=== PATIENT | male | born 1975 | race Caucasian/White ===

== ENCOUNTER 2016-08-09 17:56 | Emergency (ER) | payer BC ==
--- NOTE | 2016-08-09 19:17 | PHYS DOC ---
Past Medical History Past Medical History: Diabetes-Type II Additional Past Medical Histor: gout Past Surgical History: No Surgical History Alcohol Use: Occasionally Drug Use: None Adult General Chief Complaint Chief Complaint: MULTIPLE COMPLAINTS HPI HPI Patient is a 41 year old male who presents with atraumatic right knee pain for 2 weeks. He reports swelling and redness of the knee as well. He does not recall any injury. The pain gets worse throughout the day. The swelling is better in the morning and also increases throughout the day. He has had night sweats without fevers. He has a history of gout. He has been taking indomethacin without improvement in his symptoms. He states usually the indomethacin resolves his gout flares. He has been applying ice, heat, and massaging without relief. The pain is worse when walking or with bending the knee. His PCP is Dr. Soheila Umaña. Review of Systems Review of Systems Constitutional: Denies fever or chills. Reports night sweats. Musculoskeletal: Reports right knee pain and swelling. Integument: Denies rash or skin lesions. Reports right knee redness, swelling, and warmth. Neurologic: Denies focal weakness or sensory changes. [] Current Medications Current Medications Current Medications Medications (Trade) Dose Ordered Sig/Wero Start Time Stop Time Status Last Admin Dose Admin Morphine Sulfate 4 mg PRN Q15MIN PRN 08/09/16 19:30 08/09/16 21:59 DC 08/09/16 19:39 4 MG Allergies Allergies Allergies Coded Allergies Type Severity Reaction Last Updated Verified No Known Drug Allergies 08/09/16 No Physical Exam Physical Exam Constitutional: Well developed, well nourished, no acute distress, non-toxic appearance. [] HENT: Normocephalic, atraumatic, oropharynx moist. [] Eyes: PERRLA, EOMI, conjunctiva normal, no discharge. [] Skin: Warm, dry, no rash. There is diffuse erythema of the right knee and surrounding tissue with warmth. There is no induration. There is no evidence of trauma. Extremities: Diffuse right knee tenderness, full extension with decreased flexion due to pain and swelling, mild edema. Negative ballottement. 2+ DP and PT pulses. Less than 2 second capillary refill distally. Light touch sensation intact distally. There is minimal edema of the right lower leg and ankle without pitting or erythema. Full ROM of the right hip, ankle, and foot. Neurologic: Alert and oriented X 3, normal motor function, normal sensory function, no focal deficits noted. [] Psychologic: Affect normal, judgement normal, mood normal. [] Current Patient Data Vital Signs Vital Signs Date Time Temp Pulse Resp B/P Pulse Ox O2 Delivery O2 Flow Rate FiO2 08/09/16 21:55 73 18 129/77 96 08/09/16 20:09 Room Air Lab Values Laboratory Tests Test 08/09/16 19:21 White Blood Count 7.2x10^3/uL (4.0-11.0) Red Blood Count 5.05x10^6/uL (4.30-5.70) Hemoglobin 14.3g/dL (13.0-17.5) Hematocrit 42.1% (39.0-53.0) Mean Corpuscular Volume 83fL (79-100) Mean Corpuscular Hemoglobin 28pg (25-35) Mean Corpuscular Hemoglobin Concent 34g/dL (31-37) Red Cell Distribution Width 12.7% (11.5-14.5) Platelet Count 290x10^3/uL (140-400) Neutrophils (%) (Auto) 74% (31-73) H Lymphocytes (%) (Auto) 15% (24-48) L Monocytes (%) (Auto) 9% (0-9) Eosinophils (%) (Auto) 1% (0-3) Basophils (%) (Auto) 1% (0-3) Neutrophils # (Auto) 5.3x10^3uL (1.8-7.7) Lymphocytes # (Auto) 1.1x10^3/uL (1.0-4.8) Monocytes # (Auto) 0.6x10^3/uL (0.0-1.1) Eosinophils # (Auto) 0.1x10^3/uL (0.0-0.7) Basophils # (Auto) 0.0x10^3/uL (0.0-0.2) Erythrocyte Sedimentation Rate 47 (0-15) H Uric Acid 8.0mg/dL (3.5-7.2) H Laboratory Tests 08/09/16 19:21 EKG EKG [] Radiology/Procedures Radiology/Procedures Right knee x-ray does not reveal any acute fractures or dislocations. REASON: right knee pain, red, swelling PROCEDURE: VENOUS LOWER EXTREMITY RIGHT PROCEDURE Right lower extremity venous Doppler dated 08/09/2016. HISTORY Posterior knee pain. No known injury for 2 weeks. TECHNIQUE Grayscale, color flow and spectral waveform analysis performed. COMPARISON None. FINDINGS Normal compressibility, phasicity and augmentation of flow throughout. No filling defects are seen. There is a complex fluid collection at the posterior knee that measures up to 8.8 centimeters craniocaudal dimension. IMPRESSION - No evidence of right lower extremity deep vein thrombosis. - Complex fluid collection at the posterior knee is indeterminate but may represent a large complex popliteal cyst. Recommend physical exam correlation. Course & Med Decision Making Course & Med Decision Making Pertinent Labs and Imaging studies reviewed. (See chart for details) Patient is a 41-year-old male with history of gout who presents with atraumatic right knee pain, redness, and swelling for 2 weeks. On exam, the knee is erythematous, warm, and mildly swollen with decreased range of motion due to pain. He is neurovascularly intact. X-ray does not show any acute fractures or dislocations. Ultrasound shows a Morillo's cyst in the right knee without DVT. Uric acid and ESR elevated without leukocytosis. Patient was seen and examined with Dr. Odell. He does not appear to have a septic joint. The pain, redness, and swelling are likely due to fluid leakage from the Morillo's cyst. Patient is discharged home with prescription for pain medication. He is instructed to follow-up with orthopedics. Return if swelling, redness, or warmth increase, as the knee may need to be tapped. The patient verbalizes understanding and agrees with plan. Dragon Disclaimer Dragon Disclaimer This electronic medical record was generated, in whole or in part, using a voice recognition dictation system. Departure Departure Impression: Primary Impression: Bakers cyst Disposition: 01 HOME, SELF-CARE Condition: STABLE Referrals: SOHEILA HAMILTON (PCP) JOHN ABDALLA MD Patient Instructions: Morillo's Cyst Additional Instructions: You have a cyst, or fluid-filled sack behind your knee that appears to be causing your pain. Please take the prescribed medication as directed. Do not drive or operate heavy machinery taking the pain medication. Please follow-up with the orthopedic doctor listed below. Return to the emergency department if you have increased swelling, redness, pain , or other new or concerning symptoms. Scripts Oxycodone/Apap 5-325 (Percocet 5-325 Mg Tablet)1 Each Tablet1 Tab PO PRN Q6HRS PRN PAIN #20 TAB Prov:KAYLEIGH MURILLO 08/09/16 Problem Qualifiers Primary Impression: Bakers cyst Laterality: right Qualified Code: M71.21 - Synovial cyst of popliteal space [Morillo], right knee KAYLEIGH MURILLO Aug 09, 2016 19:17
[2016-08-09] MEDS ORDERED: MORPHINE SULFATE 4 MG/ML DISP.SYRIN. IV/SQ PRN (19:30)
[2016-08-09 19:33] LABS: BASO % 1 % (0-3); EOS % 1 % (0-3); HEMATOCRIT 42.1 % (39.0-53.0); HEMOGLOBIN 14.3 g/dL (13.0-17.5); LYMPH # 1.1 x10^3/uL (1.0-4.8); LYMPH % 15 % (24-48); MEAN CORPUSCULAR HEMOGLOBIN 28 pg (25-35); MEAN CORPUSCULAR HGB CONC 34 g/dL (31-37); MEAN CORPUSCULAR VOLUME 83 fL (79-100); MONO % 9 % (0-9); NEUT % 74 % (31-73); PLATELET COUNT 290 x10^3/uL (140-400); RED BLOOD COUNT 5.05 x10^6/uL (4.30-5.70); RED CELL DISTRIBUTION WIDTH 12.7 % (11.5-14.5); WHITE BLOOD COUNT 7.2 x10^3/uL (4.0-11.0)
--- NOTE | 2016-08-09 21:18 | RAD ---
PROCEDURE Right lower extremity venous Doppler dated 08/09/2016. HISTORY Posterior knee pain. No known injury for 2 weeks. TECHNIQUE Grayscale, color flow and spectral waveform analysis performed. COMPARISON None. FINDINGS Normal compressibility, phasicity and augmentation of flow throughout. No filling defects are seen. There is a complex fluid collection at the posterior knee that measures up to 8.8 centimeters craniocaudal dimension. IMPRESSION - No evidence of right lower extremity deep vein thrombosis. - Complex fluid collection at the posterior knee is indeterminate but may represent a large complex popliteal cyst. Recommend physical exam correlation. Electronically signed by: Suresh May (Aug 09, 2016 21:16:38)
[2016-08-09] MEDS ORDERED: OXYC-323 PO (21:44)
[2016-08-09 21:55] VITALS: BP 129/77
--- NOTE | 2016-08-10 08:09 | RAD ---
Right knee, 3 views, 08/09/2016: History: Knee pain, gout There is minimal marginal spurring medially at the knee joint. No bone erosions are seen. No fracture or dislocation is evident. There is mild subcutaneous edema. IMPRESSION: No acute bony abnormality is detected.
== END 2016-08-09 21:55 | disposition home or self-care (01) ==
LOC: ER 17:56
DX: M71.21 Synovial cyst of popliteal space [Baker], right knee (principal); M10.9 Gout, unspecified; E11.9 Type 2 diabetes mellitus without complications
CPT/HCPCS: 36415; 73562; 84550; 85027; 85651; 93971; 96374; 99285; J2270